=== PATIENT | male | born 1990 | race Caucasian/White ===

== ENCOUNTER 2017-06-09 03:58 | Emergency (ER) | payer SELFPAY ==
[~2017-06-09] VITALS: Ht 177.8 cm; Wt 108.9 kg
[2017-06-09 04:30] VITALS: BP 138/90
[2017-06-09] MEDS ORDERED: TETANUS-DIPTH-ACEL PERTUSSIS 0.5ML SYRG IM ONE (06:00)
== END 2017-06-09 06:25 | disposition home or self-care (01) ==
LOC: ER 04:01
DX: S02.42XA Fracture of alveolus of maxilla, initial encounter for closed fracture (principal); Y08.89XA Assault by other specified means, initial encounter; Y93.89 Activity, other specified; Y92.89 Other specified places as the place of occurrence of the external cause; Y99.8 Other external cause status
CPT/HCPCS: 70450; 70486; 90471; 90715